=== PATIENT | female | born 1945 | race Caucasian/White ===

== ENCOUNTER 2017-05-20 07:30 | Inpatient (IN) | payer MEDICARE ==
--- NOTE | 2017-05-16 18:22 | HP ---
HISTORY AND PHYSICAL: DATE OF ADMISSION/SURGERY: 05/20/17 DATE OF OFFICE VISIT: 05/16/17 SURGEON: Trudy Rueda MD. PROCEDURE: Left total hip arthroplasty. CHIEF COMPLAINT: Left hip pain. HISTORY OF PRESENT ILLNESS: Ms. Hi is a 72-year-old female with complaints of left hip pain. She has failed conservative management and has elected to proceed with a left total hip arthroplas ty, which is scheduled for 05/20/[address] Rudea. PAST MEDICAL HISTORY: 1. Osteoarthritis. 2. Hypertension. 3. Anxiety. 4. High cholesterol. 5. Lupus. 6. Polymyalgia rheumatica. 7. Peptic/duodenal ulcers. PAST SURGICAL HISTORY: 1. Cataract removal. 2. Squamous cell carcinoma removal. 3. Total hysterectomy. CURRENT MEDICATIONS: 1. [place]. 2. Lisinopril. 3. Hydroxychloroquine. 4. Vitamin D. 5. Alprazolam. 6. Prednisone. 7. Metoprolol. 8. Gabapentin. 9. Furosemide. 10. Cardizem. 11. Allopurinol. 12. Vitamin D3. 13. Calcium citrate. ALLERGIES: NORVASC and LATANOPROST EYE DROPS. FAMILY HISTORY: Heart disease, ovarian cancer, rheumatoid arthritis and lung cancer. SOCIAL HISTORY: This is a 72-year-old female. She lives with a friend. She smokes about a quarter pack of cigarettes a day for the last 30 years. She denies use of alcohol or drugs. REVIEW OF SYSTEMS: A complete 14-point review of systems was reviewed with the patient, positive fo r history of MRSA infection. She denies any history of anesthesia problems, DVT, PE, hepatitis C or HIV. PHYSICAL EXAMINATION GENERAL: She is well developed, well nourished, in no acute distress. VITAL SIGNS: She stands 5 feet 8 inches tall, weighs 140 pounds. Her blood pressure is 132/80, her heart rate is 84. HEENT: Normocephalic, atraumatic. NECK: Supple. No palpable lymph nodes. PULMONARY: Lungs are clear to auscultation. CARDIO: Regular rate and rhythm. ABDOMEN: Soft, nontender, and nondistended. MUSCULOSKELETAL: Left lower extremity: The skin is intact. She has limited range of motion with i nternal and external rotation of her left hip. She walks with an antalgic-type gait. Her lower ext remity muscle group strengths are intact at 5/5. She has 2+ dorsalis pedis pulses and intact sensati on. NEUROLOGIC: She is alert and oriented x3. Cranial nerves II through XII are intact. ASSESSMENT AND PLAN: Ms. Hi is a 72-year-old female with complaints of left hip pain. She has failed conservative management and has elected to proceed with a left total hip arthroplasty, wh ich is scheduled for 05/20/[address] Rueda discussed the risks and benefits of the [place] asmita and all of her questions were answered. Colace and Coumadin were sent to her pharmacy for post operative DVT prophylaxis and to help with postoperative constipation. Pain medication was not sent to her pharmacy. The type of pain medication will be determined at the time of discharge from the hospital. She will see Dr. Rueda, back 2 weeks following the surgery. MENDEZ BENITEZ [id number]/[facility] #: [id number]
[2017-05-21] MEDS ORDERED: Buffered Lidocaine 0.9% SYRIN* 5 ML/SYR SYRINGE INTRADERM ONE (14:01)
[2017-05-22] MEDS ORDERED: Scopolamine 1.5 mg* PATCH TRANSDERM ONE (06:00)
[2017-05-22] MEDS ORDERED: Famotidine IV* 10 MG/ML 2 ML (20 mg) IV ONE (06:00)
[2017-05-22] MEDS ORDERED: Famotidine IV* 10 MG/ML 2 ML (20 mg) ONE (09:58)
[2017-05-22] MEDS ORDERED: ceFAZolin 2 GM PREMIX(*) 2 GM/50 ML BAG IVPB ONE (09:59)
[2017-05-22] MEDS ORDERED: Scopolamine 1.5 mg* PATCH ONE (09:59)
[2017-05-22] MEDS ORDERED: Buffered Lidocaine 0.9% SYRIN* 5 ML/SYR SYRINGE ONE (09:59)
[2017-05-22] MEDS ORDERED: Hydrocortisone INJ* 100 MG VIAL ONE (12:15)
[2017-05-22] MEDS ORDERED: fentaNYL* 50 MCG/ML 2 ML VIAL (100 MCG VIAL) ONE (12:15)
[2017-05-22] MEDS ORDERED: Midazolam* 1 MG/ML 5 ML VIAL (5 MG) ONE (12:15)
[2017-05-22] MEDS ORDERED: Bupivacaine 0.5% SDV PF* 30 ML VIAL ONE (12:21)
[2017-05-22] MEDS ORDERED: Morphine PF AMP (0.5MG/ML)* 5 MG/10 ML AMP ONE (12:21)
[2017-05-22] MEDS ORDERED: EPHEDrine (Pressors)* 50 MG/ML VIAL ONE (13:27)
[2017-05-22] MEDS ORDERED: oxyCODONE TAB* 5 MG TAB PO PRN ×2 (14:11→14:13)
[2017-05-22] MEDS ORDERED: fentaNYL* 50 MCG/ML 2 ML VIAL (100 MCG VIAL) IV PRN (14:11)
[2017-05-22] MEDS ORDERED: PROCHLORPERAZINE INJ 5 MG/ML 2 ML VIAL IV PRN ×2 (14:11→14:13)
[2017-05-22] MEDS ORDERED: Acetaminophen IV 1GM/100ML * 100 ML IVPB ONE (14:11)
[2017-05-22] MEDS ORDERED: Nalbuphine* 20 MG/ML 1 ML VIAL IV PRN ×2 (14:11→14:13)
[2017-05-22] MEDS ORDERED: Ondansetron INJ* 2 MG/ML VIAL IV PRN (14:13)
[2017-05-22] MEDS ORDERED: Naloxone* 0.4 MG/ML 1 ML VIAL IV PRN (14:13)
[2017-05-22] MEDS ORDERED: Lactated Ringers 500 ml BAG* 500 ML IV PRN (14:17)
[2017-05-22] MEDS ORDERED: EPHEDrine (Pressors)* 50 MG/ML VIAL IV PUSH PRN (14:17)
[2017-05-22] MEDS ORDERED: Bisacodyl SUPP* 10 MG SUPP PR PRN (14:30)
[2017-05-22] MEDS ORDERED: Polyethylene Glycol 3350* 17 GM PACKET PO PRN (14:30)
[2017-05-22] MEDS ORDERED: Furosemide TAB* 20 MG PO PRN (14:35)
[2017-05-22] MEDS ORDERED: Propofol* 10 MG/ML 20 ML BTL IV PUSH ONE ×2 (14:36→15:23)
[2017-05-22] MEDS ORDERED: Acetaminophen TAB* 325 MG PO SCH (15:00)
[2017-05-22] MEDS ORDERED: ceFAZolin VIAL(*) 1 GM in NS 0.9% 50 ML* 50 ML IVPB SCH (15:00)
[2017-05-22] MEDS ORDERED: Ropivacaine 0.2% EPIDURAL* 200 MG/100 ML BAG EPIDURAL SCH (15:00)
[2017-05-22] MEDS ORDERED: Lidocaine 2% PF * 5 ML VIAL ONE (15:23)
[2017-05-22] MEDS ORDERED: Ropivacaine 0.2% EPIDURAL* 200 MG/100 ML BAG EPIDURAL ONE (15:39)
--- NOTE | 2017-05-22 15:43 | RAD ---
Indication: Left hip replacement. Single view of the pelvis demonstrates left hip replacement in satisfactory position. No loosening is noted. IMPRESSION: LEFT HIP REPLACEMENT IN SATISFACTORY POSITION.
--- NOTE | 2017-05-22 16:55 | RAD ---
Indication: Left hip arthroplasty. 2 views of left hip demonstrates bipolar left hip arthroplasty in satisfactory position. No periprosthetic fracture is noted. IMPRESSION: Left hip replacement in satisfactory position.
--- NOTE | 2017-05-22 16:56 | RAD ---
Indication: Left hip replacement. Single view of the pelvis demonstrates left hip replacement in satisfactory position. Right hip demonstrates osteopenia. IMPRESSION: Left hip replacement appears in satisfactory position.
[2017-05-22] MEDS ORDERED: Acetaminophen IV 1GM/100ML * 100 ML ONE (17:47)
[2017-05-22] MEDS: ceFAZolin VIAL(*) 1 GM in NS 0.9% 50 ML* 50 ML IVPB SCH (19:58)
[2017-05-22] MEDS: Docusate CAP* 100 MG PO SCH (19:58)
[2017-05-22] MEDS ORDERED: Warfarin TAB(*) 6 MG PO ONE (20:00)
[2017-05-22] MEDS: Hydroxychloroquine TAB* 200 MG PO SCH (20:24)
[2017-05-22] MEDS ORDERED: NON FORMULARY MED* (Lisinopril [Lisinopril 40 Mg-] 40 MG) PO SCH (21:00)
--- NOTE | 2017-05-23 00:45 | CONS ---
CC: Dr. Tanja Vasquez; Dr. Maldonado * MEDICINE CONSULTATION: DATE OF CONSULT: 05/22/17 PROVIDER: Herbie Tinajero NP CONSULTING PHYSICIAN: Dr. Bud Jennings (as dictated by Herbie Tinajero NP) REQUESTING PHYSICIAN: Dr. Trudy Rueda, Orthopedic Surgery. PRIMARY CARE PROVIDER: Dr. Vasquez. PRIMARY OVERHEAD GARAGE DOOR HANGER: Dr. Maldonado. REASON FOR CONSULT: Co-medical management in the postoperative period following left total hip arthroplasty. HISTORY OF PRESENT ILLNESS: Ms. Hi is a 72-year-old female, who reports persistent left hip pain. She describes debilitating pain stating that prior to the surgery, she "thought she would " and also reports decreased mobility , decreased p.o. intake, and incontinence at home secondary to pain ambulating to the bathroom. In the terms of acute medical issues, she denies any recent fever, chills, chest pain, trouble breathing, nausea, vomiting, or any other acute concerns. She is most concerned with her chronic ailments, primarily her hip, and it was felt a hip replacement will help to improve her quality of life. PAST MEDICAL HISTORY: Significant for: 1. Osteoarthritis. 2. Hypertension. 3. Anxiety. 4. Hyperlipidemia. 5. Contact dermatitis. 6. Polymyalgia rheumatica. 7. Systemic lupus erythematosus. 8. Allergic rhinitis. 9. Peptic and duodenal ulcers. 10. Cervical and lumbar degenerative disk disease. 11. Gout. PAST SURGICAL HISTORY: Includes: 1. Cataract removal. 2. Squamous cell carcinoma removal from the nose. 3. Hysterectomy secondary to cervical cancer and endometriosis. HOME MEDICATIONS: 1. Calcium supplement 1 tab daily. 2. Xanax 0.5 mg daily. 3. [place] 5/325 one tab q.4 hours p.r.n. 4. Metoprolol succinate 50 mg b.i.d. 5. Plaquenil 200 mg b.i.d. 6. Lisinopril 40 mg b.i.d. 7. Vitamin D 50,000 units weekly. 8. Gabapentin 300 mg daily. 9. Diltiazem 120 mg daily. 10. Allopurinol 100 mg daily. 11. Furosemide 20 mg daily p.r.n. 12. Prednisone 10 mg p.r.n. ALLERGIES: Include AMLODIPINE, LATANOPROST, and LATEX. FAMILY HISTORY: Significant for father, who from heart disease and mother , who from ovarian cancer. She reports 1 brother with rheumatoid arthritis and lung cancer, another brother with sleep apnea and osteoarthritis. SOCIAL HISTORY: She reports greater than 30 years smoking history. She smokes a quarter pack per day and states that she has greatly decreased this. She denies any alcohol or illicit drug use. She is . She lives with her friend, Gonzalo Mcdaniels, who is also her surrogate decision maker in the event of emergency, he is also her cement truck driver. REVIEW OF SYSTEMS: As per HPI, a 12-point review of systems was completed, all other systems are negative. PHYSICAL EXAM: General: Ms. Hi is a 72-year-old female, who is lying in the PACU stretcher, in no acute distress. Vital Signs: Temperature 97.0, heart rate 55, respiratory rate 16, blood pressure 113/84, and O2 sat 100% on 2 L nasal cannula. HEENT: Head is atraumatic, normocephalic. Face is symmetrical. Pupils are equal, round, and reactive to light. Oral mucosa appears moist. Neck is supple. No lymphadenopathy appreciated. Cardiac: S1, S2 heart sounds. Regular rate and rhythm. No murmurs, rubs, or gallops. Respiratory: Lungs are clear to auscultation. Abdomen is soft, nontender, and nondistended. Musculoskeletal: The left lower extremity has a clean, dry, and intact dressing to the left hip. The patient is able to wiggle her toes. She has 2+ dorsalis pedis pulses to the lower extremities. She is able to move her upper extremities and right lower extremity. Neuro: She is alert and oriented x3. No focal weakness. She moves all extremities. ASSESSMENT AND PLAN: Ms. Hi is a 72-year-old female, who has electively been admitted today for a left total hip arthroplasty. We will follow along with the orthopedic group for her co-medical management. Plan is as follows. 1. Status post left total hip replacement: Management per Ortho. We would continue with pain management and monitoring of H and H and PT and OT. 2. Hypertension: Currently normotensive. We will continue the patient's home medications of Toprol-XL and lisinopril in the postoperative period; however, I will hold her lisinopril for postop day 1 and add this back on in order to prevent any acute kidney injury. Metoprolol and diltiazem will be continued withhold parameters. 3. Hyperlipidemia: The patient is diet controlled, continue her healthy diet. 4. Lupus: Continue Plaquenil. 5. Polymyalgia rheumatica: Continue outpatient followup with Rheumatology, we will hold her p.r.n. prednisone in the postoperative period. 6. History of gout: Continue allopurinol. 7. Chronic pain: Continue gabapentin. 8. Anxiety: Continue Xanax on a p.r.n. basis with hold parameters if sedated. 9. FEN: The patient will be ordered heart-healthy diet. 10. DVT prophylaxis: Per Ortho. 11. Code status: The patient is a full code. TIME SPENT: On this consultation was approximately 45 minutes, more than half the time was spent [id number] with the patient obtaining history and physical , performing physical examination, and reviewing plan of care. Plan of care also reviewed with my attending, Dr. Jennings, who is in agreement. HERBIE TINAJERO, NUCLEAR POWER PLANT ENGINEER [id number]/[facility] #: [id number] RUSTAM
[2017-05-23] MEDS: Acetaminophen TAB* 325 MG PO SCH ×4 (01:51→21:43)
[2017-05-23] MEDS: ceFAZolin VIAL(*) 1 GM in NS 0.9% 50 ML* 50 ML IVPB SCH ×2 (05:00→12:45)
[2017-05-23] MEDS ORDERED: Ondansetron INJ* 2 MG/ML VIAL IV PRN (06:00)
[2017-05-23] MEDS ORDERED: diPHENhydraMINE IV* 50 MG/ML 1 ml VIAL (BENADRYL) IV PRN (06:00)
[2017-05-23] MEDS ORDERED: oxyCODONE/Acetamin 5/325 MG* TAB PO PRN (06:00)
[2017-05-23] MEDS ORDERED: Morphine INJ* 2 MG/ML 1 ML SYRINGE IV PRN ×2 (06:00→09:30)
[2017-05-23] MEDS ORDERED: oxyCODONE TAB* 5 MG TAB PO PRN (06:00)
[2017-05-23 06:49] LABS: Hematocrit 32 % (35-47); Hemoglobin 10.5 g/dl (12.0-16.0)
[2017-05-23 07:27] LABS: BUN/Creatinine Ratio 18.3 (8-20); Blood Urea Nitrogen 13 mg/dL (6-24); CO2 Carbon Dioxide 24 mmol/L (22-32); Chloride 107 mmol/L (101-111); EGFR African American 103.5 (>60); EGFR Non-African American 80.5 (>60); Glucose 79 mg/dL (70-100); Sodium 137 mmol/L (133-145)
[2017-05-23] MEDS: oxyCODONE/Acetamin 5/325 MG* TAB PO PRN ×3 (07:49→18:39)
[2017-05-23 08:26] LABS: Anion Gap 6 mmol/L (2-11)
[2017-05-23] MEDS ORDERED: Lisinopril TAB* 10 MG PO SCH ×2 (09:00→21:00)
[2017-05-23] MEDS ORDERED: Diltiazem CD CAP* 120 MG PO SCH (09:00)
[2017-05-23] MEDS ORDERED: ALPRAZolam TAB* 0.5 MG PO SCH (09:00)
[2017-05-23] MEDS ORDERED: Metoprolol Succinate XL TAB* 50 MG PO SCH (09:00)
--- NOTE | 2017-05-23 09:30 | PN ---
Progress Note - Progress Note Date of Service: 05/23/17 SOAP: Subjective: 72 y/o female s/p L TIMI 05/[address] Rueda. Patient reports feeling comfortable , a bit confused lying in bed, states pain under control. Objective: General- Well appearing, NAD MSK- SUrgical dressing intact over L hip, no drainage noted, no erythema. PT pulses 2+, PF/ DF +. Vital Signs Temp 98.3 F 05/23/17 07:42 Pulse 79 05/23/17 07:42 Resp 20 05/23/17 08:03 BP 115/59 05/23/17 07:42 Pulse Ox 100 05/23/17 07:42 Intake & Output 05/22/17 05/23/17 05/23/17 18:59 06:59 18:59 Intake Total 2550 3467 120 Output Total 900 Balance 2550 2567 120 Weight 143 lb 12.8 oz Intake: IV Fluids 2550 1232 LR 1232 NS 50ML, Cefazolin 2G 50 lr 2500 IVPB 55 Kefzol 55 Oral 2180 120 Output: Kumari 900 Laboratory Results - last 24 hr 05/23/17 05/23/17 05/23/17 06:12 07:02 07:02 Hgb 10.5 L Hct 32 L INR (Anticoag Therapy) 1.04 Sodium 137 Potassium TNP Chloride 107 Carbon Dioxide 24 Anion Gap 6 BUN 13 Creatinine 0.71 Est GFR ( Amer) 103.5 Est GFR (Non-Af Amer) 80.5 BUN/Creatinine Ratio 18.3 Glucose 79 Calcium 8.0 L Assessment: 72 y/o female s/p L TIMI 05/[address] Rueda. Plan: - DVT prophylaxis- 6mg coumadin tonight, continue lovenox - Pain regimen- patient had increased confusion with morphine, percocet. Added Ultram, d/c'd 2 percocet, decreased IV morphine. Active Medications Generic Name Dose Route Start Last Admin Trade Name Freq PRN Reason Stop Dose Admin Acetaminophen 650 mg 05/23/17 15:00 Tylenol Tab* PO Q4H PRN PAIN OR TEMPERATURE Acetaminophen 975 mg 05/23/17 01:30 05/23/17 01:51 Tylenol Tab* PO 05/23/17 14:59 975 mg Q8H CHARU Administration Allopurinol 100 mg 05/23/17 09:00 Zyloprim Tab* PO DAILY CHARU Alprazolam 0.5 mg 05/23/17 06:00 Xanax Tab* PO DAILY PRN ANXIETY Bisacodyl 10 mg 05/22/17 14:30 Dulcolax Supp* PA DAILY PRN constipation Diltiazem HCl 120 mg 05/24/17 09:00 Cardizem Cd Cap* PO DAILY CHARU Diphenhydramine HCl 12.5 mg 05/23/17 06:00 Benadryl Iv* IV Q6H PRN PRURITIS Docusate Sodium 100 mg 05/22/17 21:00 05/22/17 19:58 Colace Cap* PO 100 mg BID CHARU Administration Enoxaparin Sodium 30 mg 05/23/17 15:00 Lovenox(*) SUBCUT Q24H CHARU Gabapentin 300 mg 05/23/17 09:00 Neurontin Cap(*) PO DAILY CHARU Hydroxychloroquine Sulfate 200 mg 05/22/17 21:00 05/22/17 20:24 Plaquenil Tab* PO 200 mg BID CHARU Administration Lactated Ringer's 1,000 mls @ 100 mls/hr 05/22/17 15:00 05/23/17 03:53 Lactated Ringers 1000 Ml Bag* IV 100 mls/hr PER RATE CHARU Administration Cefazolin Sodium 1 gm/ Sodium 50 mls @ 200 mls/hr 05/22/17 21:00 05/23/17 05: 00 Chloride IVPB 05/23/17 13:14 200 mls/hr Q8H CHARU Administration Lactulose 30 ml 05/22/17 14:30 Lactulose* PO Q6H PRN constipation Lisinopril 40 mg 05/23/17 09:00 Prinivil Tab* PO DAILY [facility] Magnesium Hydroxide 30 ml 05/22/17 14:30 Milk Of Magnesia Liq* PO Q6H PRN constipation Metoprolol Succinate 50 mg 05/24/17 09:00 Toprol Xl Tab* PO BID [facility] Morphine Sulfate 2 mg 05/23/17 06:00 05/23/17 08:03 Morphine Inj (Syringe)* IV 2 mg Q2H PRN Administration PAIN Ondansetron HCl 4 mg 05/23/17 06:00 Zofran Inj* IV Q6H PRN nausea Oxycodone HCl 10 mg 05/23/17 06:00 Roxycodone Tab* PO Q4H PRN SEVERE PAIN Oxycodone/Acetaminophen 1 tab 05/23/17 06:00 05/23/17 07:49 Percocet 5/325 Tab* PO 1 tab Q3H PRN Administration PAIN - MODERATE Pharmacy Profile Note 1 note 05/25/17 06:00 Scopolomine Patch Remove* PATCH OFF 05/25/17 06:01 ONCE ONE Pharmacy Profile Note 1 note 05/23/17 17:00 Coumadin Daily Reminder* FOLLOW UP 1700 [facility] Polyethylene Glycol/Electrolytes 17 gm 05/22/17 14:30 Miralax* PO DAILY PRN Constipation Tramadol HCl 50 mg 05/23/17 09:26 Ultram* PO Q6H PRN PAIN Warfarin Sodium 6 mg 05/23/17 17:00 Coumadin Tab(*) PO 05/23/17 17:01 ONCE@1700 [facility] Protocol
[2017-05-23] MEDS: Allopurinol TAB* 100 MG PO SCH (10:20)
[2017-05-23] MEDS: Gabapentin CAP(*) 300 MG PO SCH (10:20)
[2017-05-23] MEDS: Hydroxychloroquine TAB* 200 MG PO SCH ×2 (10:22→20:45)
[2017-05-23] MEDS: traMADol TAB* 50 MG PO PRN ×2 (10:22→21:43)
[2017-05-23] MEDS: Docusate CAP* 100 MG PO SCH ×2 (10:23→20:45)
--- NOTE | 2017-05-23 10:26 | PN ---
Subjective Date of Service: 05/23/17 Interval History: Patient seen and examined at bedside. Ms. Hi is laying in recliner in hallway. She is pleasantly confused and singing. She states she is going to treat her friend to take out. When asked if she knows she is in the hospital, she say "of course" and then "It's nice of everyone to come over." She currently denies pain though nursing reports that when patient is moved, she cries out. Family History: Unchanged from Admission Social History: Unchanged from Admission Past Medical History: Unchanged from Admission Objective Active Medications: Acetaminophen (Tylenol Tab*) 975 mg PO Q8H [facility] Stop: 05/23/17 14:59 Last Admin: 05/23/17 10:22 Dose: 975 mg Acetaminophen (Tylenol Tab*) 650 mg PO Q6H [facility] Allopurinol (Zyloprim Tab*) 100 mg PO DAILY [facility] Last Admin: 05/23/17 10:20 Dose: 100 mg Alprazolam (Xanax Tab*) 0.5 mg PO DAILY PRN PRN Reason: ANXIETY Bisacodyl (Dulcolax Supp*) 10 mg OR DAILY PRN PRN Reason: constipation Diltiazem HCl (Cardizem Cd Cap*) 120 mg PO DAILY [facility] Diphenhydramine HCl (Benadryl Iv*) 12.5 mg IV Q6H PRN PRN Reason: PRURITIS Docusate Sodium (Colace Cap*) 100 mg PO BID [facility] Last Admin: 05/23/17 10:23 Dose: 100 mg Enoxaparin Sodium (Lovenox(*)) 30 mg SUBCUT Q24H [facility] Gabapentin (Neurontin Cap(*)) 300 mg PO DAILY [facility] Last Admin: 05/23/17 10:20 Dose: 300 mg Hydroxychloroquine Sulfate (Plaquenil Tab*) 200 mg PO BID [facility] Last Admin: 05/23/17 10:22 Dose: 200 mg Lactated Ringer's (Lactated Ringers 1000 Ml Bag*) 1,000 mls @ 100 mls/hr IV PER RATE [facility] Last Admin: 05/23/17 03:53 Dose: 100 mls/hr Cefazolin Sodium 1 gm/ Sodium (Chloride) 50 mls @ 200 mls/hr IVPB Q8H [facility] Stop: 05/23/17 13:14 Last Admin: 05/23/17 05:00 Dose: 200 mls/hr Lactulose (Lactulose*) 30 ml PO Q6H PRN PRN Reason: constipation Lisinopril (Prinivil Tab*) 40 mg PO DAILY [facility] Magnesium Hydroxide (Milk Of Magnesia Liq*) 30 ml PO Q6H PRN PRN Reason: constipation Metoprolol Succinate (Toprol Xl Tab*) 50 mg PO BID [facility] Morphine Sulfate (Morphine Inj (Syringe)*) 0.5 mg IV Q2H PRN PRN Reason: PAIN Ondansetron HCl (Zofran Inj*) 4 mg IV Q6H PRN PRN Reason: nausea Oxycodone/Acetaminophen (Percocet 5/325 Tab*) 1 tab PO Q3H PRN PRN Reason: PAIN - MODERATE Last Admin: 05/23/17 07:49 Dose: 1 tab Pharmacy Profile Note (Scopolomine Patch Remove*) 1 note PATCH OFF ONCE ONE Stop: 05/25/17 06:01 Pharmacy Profile Note (Coumadin Daily Reminder*) 1 note FOLLOW UP 1700 [facility] Polyethylene Glycol/Electrolytes (Miralax*) 17 gm PO DAILY PRN PRN Reason: Constipation Tramadol HCl (Ultram*) 50 mg PO Q6H PRN PRN Reason: PAIN Last Admin: 05/23/17 10:22 Dose: 50 mg Warfarin Sodium (Coumadin Tab(*)) 6 mg PO ONCE@1700 CHARU PRN Reason: Protocol Stop: 05/23/17 17:01 Vital Signs 05/22/17 05/22/17 05/22/17 15:38 15:40 15:45 Temperature 97.0 F Pulse Rate 56 53 56 Respiratory 20 16 17 Rate Blood Pressure 118/72 123/64 108/95 (mmHg) O2 Sat by Pulse 98 99 100 Oximetry 05/22/17 05/22/17 05/22/17 15:50 16:00 16:15 Temperature Pulse Rate 55 56 55 Respiratory 16 16 16 Rate Blood Pressure 110/62 123/82 113/84 (mmHg) O2 Sat by Pulse 96 99 100 Oximetry 05/22/17 05/22/17 05/22/17 16:30 16:45 17:00 Temperature Pulse Rate 55 55 58 Respiratory 15 16 16 Rate Blood Pressure 116/83 117/77 134/100 (mmHg) O2 Sat by Pulse 100 100 100 Oximetry 05/22/17 05/22/17 05/22/17 17:15 17:30 17:45 Temperature Pulse Rate 56 59 59 Respiratory 16 16 16 Rate Blood Pressure 130/63 139/64 124/58 (mmHg) O2 Sat by Pulse 100 100 100 Oximetry 05/22/17 05/22/17 05/22/17 18:00 18:30 19:40 Temperature 97.5 F 98.5 F 97.2 F Pulse Rate 58 68 68 Respiratory 16 16 15 Rate Blood Pressure 119/80 113/62 102/65 (mmHg) O2 Sat by Pulse 100 99 97 Oximetry 05/22/17 05/22/17 05/22/17 20:15 20:31 22:26 Temperature 98.4 F 97.8 F Pulse Rate 70 69 Respiratory 15 16 15 Rate Blood Pressure 109/60 98/55 (mmHg) O2 Sat by Pulse 100 96 Oximetry 05/23/17 05/23/17 05/23/17 00:00 00:05 00:10 Temperature 97.9 F Pulse Rate 74 Respiratory 16 Rate Blood Pressure 99/66 98/68 (mmHg) O2 Sat by Pulse 99 99 Oximetry 05/23/17 05/23/17 05/23/17 01:52 02:54 03:45 Temperature 97.9 F 98.1 F 98.9 F Pulse Rate 107 77 76 Respiratory 15 18 14 Rate Blood Pressure 107/65 95/58 77/48 (mmHg) O2 Sat by Pulse 87 100 97 Oximetry 05/23/17 05/23/17 05/23/17 04:02 07:42 07:49 Temperature 98.3 F Pulse Rate 79 Respiratory 16 16 Rate Blood Pressure 102/56 115/59 (mmHg) O2 Sat by Pulse 100 Oximetry 05/23/17 05/23/17 05/23/17 08:03 09:03 09:49 Temperature Pulse Rate Respiratory 20 16 16 Rate Blood Pressure (mmHg) O2 Sat by Pulse Oximetry 05/23/17 05/23/17 10:20 10:22 Temperature Pulse Rate Respiratory 16 16 Rate Blood Pressure (mmHg) O2 Sat by Pulse Oximetry Oxygen Devices in Use Now: Nasal Cannula Appearance: Elderly female, lying in recliner, confused but NAD Eyes: PERRLA Ears/Nose/Mouth/Throat: Mucous Membranes Moist Neck: NL Appearance and Movements; NL JVP Respiratory: Symmetrical Chest Expansion and Respiratory Effort, Clear to Auscultation Cardiovascular: NL Sounds; No Murmurs; No JVD, RRR Abdominal: NL Sounds; No Tenderness; No Distention Extremities: - - left hip dressing c/d/i, 2+ distal pulses Neurological: - - Alert, oriented to self Lines/Tubes/Other Access: Clean, Dry and Intact Peripheral IV Nutrition: Taking PO's Result Diagrams: 05/23/17 06:12 05/23/17 07:02 Microbiology and Other Data: Microbiology 05/22/17 18:45 Nasal Screen MRSA (PCR)(JOSE MANUEL) - Final Nasal Mrsa Negative Assess/Plan/Problems-Billing Assessment: Ms. Hi is a 72 yo female with a PMH significant for OA, HTN, HLD, anxiety , PMR, SLE, gout, and pelvic and duodenal ulcers who was admitted on 05/22 for an elective left total hip replacement. - Patient Problems (1) History of total left hip replacement Code(s): Z96.642 - PRESENCE OF LEFT ARTIFICIAL HIP JOINT Comment: POD #1, management per ortho HH stable PT/OT Pain management (2) Altered mental status Code(s): R41.82 - ALTERED MENTAL STATUS, UNSPECIFIED Comment: Patient reportedly more oriented prior to receiving oxycodone and morphine Agree with medication changes to standing Tylenol and use of Ultram Will need to judiciously use opioids Afebrile, no s/s infection Continue to monitor - if confusion persists, further workup and eval is warranted. (3) HTN (hypertension) Code(s): I10 - ESSENTIAL (PRIMARY) HYPERTENSION Comment: Hypotensive Hold home lisinopril and Toprol XL (Patient reportedly takes lisinopril 40 mg BID, which is more than recommended dose. Will attempt to confirm with PCP). (4) HLD (hyperlipidemia) Code(s): E78.5 - HYPERLIPIDEMIA, UNSPECIFIED Comment: Diet controlled (5) Lupus (systemic lupus erythematosus) Code(s): M32.9 - SYSTEMIC LUPUS ERYTHEMATOSUS, UNSPECIFIED Comment: Continue Plaquenil. (6) Polymyalgia rheumatica Code(s): M35.3 - POLYMYALGIA RHEUMATICA Comment: Hold prednisone Continue outpatient follow-up with rheumatology. (7) Hx of gout Code(s): Z87.39 - PERSONAL HISTORY OF DISEASES OF THE MS SYS AND CONN TISS Comment: Continue allopurinol. (8) Chronic pain Code(s): G89.29 - OTHER CHRONIC PAIN Comment: Continue gabapentin. (9) Anxiety Code(s): F41.9 - ANXIETY DISORDER, UNSPECIFIED Comment: Continue alprazolam prn. (10) DVT prophylaxis Comment: Per ortho Warfarin and Lovenox Status and Disposition: Inpatient admit. Dispo per ortho. Hospitalist following for co-medical management.
[2017-05-23] MEDS ORDERED: Acetaminophen TAB* 325 MG PO PRN (15:00)
[2017-05-23] MEDS ORDERED: Enoxaparin(*) 30 MG/0.3 ML SYR SUBCUT SCH (15:00)
[2017-05-23] MEDS ORDERED: Warfarin TAB(*) 6 MG PO SCH (17:00)
[2017-05-24] MEDS: oxyCODONE/Acetamin 5/325 MG* TAB PO PRN ×5 (00:03→20:27)
[2017-05-24] MEDS: ALPRAZolam TAB* 0.5 MG PO PRN (00:04)
[2017-05-24] MEDS: Acetaminophen TAB* 325 MG PO SCH ×4 (03:59→21:15)
--- NOTE | 2017-05-24 04:43 | OP ---
OPERATIVE NOTE: DATE OF OPERATION: 05/22/17 DATE OF : 41 ATTENDING SURGEON: Trudy Rueda MD SALES AND SERVICE CONSULTANT: MENDEZ Torres Ms. Sharp did help throughout the procedure with preparation of the leg, wound retraction, manipula tion of the hip, and wound closure. ANESTHESIOLOGIST: Dr. Mendez. ANESTHESIA: Spinal. 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 POST-OP DIAGNOSIS: Severe end-stage arthritis of the left hip joint. OPERATIVE PROCEDURE: Left total hip arthroplasty. COMPLICATIONS: None. EBL: 300 cc. SPECIMEN: Femoral head and acetabular reaming, sent to Pathology. HARDWARE: This is uncemented [employer] total hip hardware. For the stem, an Accolade TMZF size 4.5 w ith a 127-degree neck angle. One prophylactic 2.0 Dall- Miles cable around the proximal femur. For the femoral head, a Biolox delta ceramic V40 femoral head, 28 -4. For the insert, a 28/48/42E Rest oration MDM X3 insert. BRIEF HISTORY/INDICATION: Ms. Hi is a 72-year-old female with years of increasingly severe l eft hip pain. She failed conservative treatment with antiinflammatories, pain medication, physical therapy, and ambulatory assistive devices. She elected to undergo a left total hip arthroplasty due to continued pain and decreased quality of life. Radiographs confirmed end-stage [id number] cont act of the left hip joint. Informed consent was obtained from the patient. She understood the risks of surgery included but we re not limited to bleeding, infection, damage to nearby structures, continued pain, need for further surgery, intraoperative fracture, nerve palsy, hardware failure or loosening, dislocation, leg flynn th discrepancy, stroke, heart attack, blood clot, and . She wished to proceed. INTRAOPERATIVE FINDINGS: Intraoperatively, the patient was noted to have severe osteopenia. She nina d end-stage arthritis with complete loss of cartilage along the . DESCRIPTION OF PROCEDURE: Ms. Hi was identified in the preanesthesia unit. The left lower ex tremity was marked as the correct operative site. Informed consent was signed and placed in the [facility] rt. The patient was taken to the operating room and placed under spinal anesthesia without difficul ty. Kumari catheter was placed. The patient was placed in the right lateral decubitus position on t he pegboard and all bony prominences were well padded. Left lower extremity was prepped and draped in the usual sterile fashion. Preop time-out was made to correctly identify the patient's side and site. Appropriate perioperative antibiotics were given within 1 hour of incision. A 12-cm posterior hip incision was made with a 10-blade and carried down to the lateral fascial laye r. Lateral fascial layer was incised in line with the skin incision. A Charnley retractor was plac ed. Piriformis and conjoint tendons were identified. These were elevated off the posterolateral fe mur and tagged with two #5 Ethibonds. Next, electrocautery was used to make a posterior capsular fl ap. This was also tagged with two #5 Ethibonds. The hip was carefully dislocated. Lesser troch to c enter of the femoral head measured 48 mm. Oscillating saw was used to make the appropriate femoral neck cut. Femoral head was sent to Pathology. f The femur was carefully retracted anteriorly. Afte r appropriate placement of retractors, the acetabulum was easily visualized. A long-handle knife wa s used to sharply remove any remaining labrum from the acetabular rim. The acetabulum was sequentia lly reamed up to a size 51. A good bleeding bone bed was obtained. The 51 trial had good fit. A 52 hemispherical Trident cup was chosen as the final implant. This was impacted into the acetabul um without difficulty. One 13-mm and one 16-mm screws placed in the superoposterior quadrant for ex tra stability. An MDM cement with liner 42E was chosen. This was impacted into the acetabulum with out difficulty. Stability of the liner was checked and rechecked and noted to be stable. Next, attention was turned to preparation of the proximal femur. A canal finder was used to enter [facility] proximal femur. The femur was sequentially broached up to a size 4.5. The 4.5 broach had good f it. The patient's bone was extremely osteopenic. Therefore, a prophylactic 2.0 Dall-Miles cable wa s placed around the proximal femur. The final implant was an Accolade TMZF size 4.5 with 127-degree neck. This was impacted into the femoral canal without difficulty. There was excellent stability. There was no periprosthetic fracture were noted. A 28 -4 femoral head had lesser troch to center of femoral head measurement of 50 mm, therefore, thi s was chosen. The MDM insert was 28/48/42E. These were impacted onto the femoral neck without diffi culty. The hip was reduced and taken through range of motion. The hip was stable in all positions. There was appropriate leg length and soft tissue tension. The previously tagged capsules and tend ons were reapproximated to the posterolateral femur through 2 trochanteric drill holes. The hip was copiously irrigated with sterile saline. The lateral fascial layer was reapproximated u sing interrupted #1 Vicryls. The rest of the incision was closed in a layered fashion using 0 and 2 -0 Vicryls. Skin was closed using running 3-0 Monocryl suture with Dermabond. Sterile 4x4s, Adapti c, and paper tape were used to cover the incision. The patient's anesthesia was reversed without difficulty. She was taken to the PACU in stable condi tion. Intended weightbearing will be weightbearing as tolerated. Intended DVT prophylaxis will be Coumadin with a Lovenox bridge. [id number]/[facility] #: [id number]
[2017-05-24] MEDS: traMADol TAB* 50 MG PO PRN (05:27)
[2017-05-24 07:38] LABS: Hematocrit 27 % (35-47); Hemoglobin 9.1 g/dl (12.0-16.0)
[2017-05-24] MEDS: Magnesium Hydroxide LIQ* 30 ML UDC PO PRN ×2 (07:55→15:57)
[2017-05-24] MEDS: Gabapentin CAP(*) 300 MG PO SCH (07:56)
[2017-05-24] MEDS: Allopurinol TAB* 100 MG PO SCH (07:56)
[2017-05-24] MEDS: Hydroxychloroquine TAB* 200 MG PO SCH ×2 (07:56→21:10)
[2017-05-24] MEDS: Docusate CAP* 100 MG PO SCH ×2 (07:56→21:09)
[2017-05-24] MEDS: Diltiazem CD CAP* 120 MG PO SCH (07:57)
[2017-05-24] MEDS: Lisinopril TAB* 10 MG PO SCH (07:57)
[2017-05-24] MEDS: Metoprolol Succinate XL TAB* 50 MG PO SCH ×2 (07:57→21:10)
--- NOTE | 2017-05-24 08:12 | PN ---
Progress Note - Progress Note Date of Service: 05/24/17 SOAP: Subjective: Pt. is alert this am with no confusion. Plans to go home with her roommate. Objective: LLE - dressing changed, inc c/d/i. distally nvi. thigh soft. Vital Signs: Temp Pulse Resp BP Pulse Ox 98.2 F 74 18 141/59 98 05/24/17 07:18 05/24/17 07:18 05/24/17 07:57 05/24/17 07:18 05/24/17 07:18 Laboratory Results - last 24 hr 05/23/17 05/24/17 05/24/17 07:02 07:15 07:15 Hgb 9.1 L Hct 27 L INR (Anticoag Therapy) Potassium TNP 3.6 Anion Gap 6 05/24/17 07:15 Hgb Hct INR (Anticoag Therapy) 1.78 H Potassium Anion Gap Assessment: 72 yo F pod 2 s/p LTHA Plan: wbat lle with post hip precautions pt/ot d/c lovenox 3 mg coumadin tonight confusion much improved plan home with vns tomorrow 05/25 will give 20 kcl bid for borderline low K
[2017-05-24] MEDS ORDERED: Lisinopril TAB* 10 MG PO SCH (09:00)
[2017-05-24] MEDS ORDERED: Metoprolol Succinate XL TAB* 50 MG PO SCH (09:00)
[2017-05-24] MEDS: Potassium Chlor TAB* 20 MEQ TAB.ER PO SCH ×2 (09:33→21:10)
--- NOTE | 2017-05-24 13:10 | PN ---
Subjective Date of Service: 05/24/17 Interval History: Ms. Hi is surprised by the amount of pain she has in her left hip but she states that it is better than yesterday. She complains of feeling of heartburn after eating with pain across the shoulder blades, exactly like she has had in the past with a history of stomache ulcers and hiatal hernia. She denies other complaint including chest pain, SOB, nausea, or abdominal pain. Family History: Unchanged from Admission Social History: Unchanged from Admission Past Medical History: Unchanged from Admission Objective Active Medications: Acetaminophen (Tylenol Tab*) 650 mg PO Q6H CHARU Allopurinol (Zyloprim Tab*) 100 mg PO DAILY CHARU Alprazolam (Xanax Tab*) 0.5 mg PO DAILY PRN Bisacodyl (Dulcolax Supp*) 10 mg [place] DAILY PRN Diltiazem HCl (Cardizem Cd Cap*) 120 mg PO DAILY CHARU Diphenhydramine HCl (Benadryl Iv*) 12.5 mg IV Q6H PRN Docusate Sodium (Colace Cap*) 100 mg PO BID CHARU Gabapentin (Neurontin Cap(*)) 300 mg PO DAILY CHARU Hydroxychloroquine Sulfate (Plaquenil Tab*) 200 mg PO BID CHARU Lactated Ringer's (Lactated Ringers 1000 Ml Bag*) 1,000 mls @ 100 mls/hr IV PER RATE CHARU Lactulose (Lactulose*) 30 ml PO Q6H PRN Lisinopril (Prinivil Tab*) 40 mg PO DAILY CHARU Magnesium Hydroxide (Milk Of Magnesia Liq*) 30 ml PO Q6H PRN Metoprolol Succinate (Toprol Xl Tab*) 50 mg PO BID CHARU Morphine Sulfate (Morphine Inj (Syringe)*) 0.5 mg IV Q2H PRN Ondansetron HCl (Zofran Inj*) 4 mg IV Q6H PRN Oxycodone/Acetaminophen (Percocet 5/325 Tab*) 1 tab PO Q3H PRN Pharmacy Profile Note (Scopolomine Patch Remove*) 1 note PATCH OFF ONCE ONE Pharmacy Profile Note (Coumadin Daily Reminder*) 1 note FOLLOW UP 1700 CHARU Polyethylene Glycol/Electrolytes (Miralax*) 17 gm PO DAILY PRN Potassium Chloride (Klor Con Er Tab*) 20 meq PO BID CHARU Tramadol HCl (Ultram*) 50 mg PO Q6H PRN Warfarin Sodium (Coumadin Tab(*)) 3 mg PO ONCE@1700 ONE Vital Signs 05/23/17 05/23/17 05/23/17 14:51 15:43 16:51 Temperature 98.7 F Pulse Rate 82 Respiratory 16 20 16 Rate Blood Pressure 136/69 (mmHg) O2 Sat by Pulse 92 Oximetry 05/23/17 05/23/17 05/23/17 18:39 19:40 19:50 Temperature 98.8 F Pulse Rate 87 Respiratory 16 24 17 Rate Blood Pressure 132/94 (mmHg) O2 Sat by Pulse 99 Oximetry 05/23/17 05/23/17 05/23/17 20:00 20:39 20:50 Temperature Pulse Rate Respiratory 17 16 16 Rate Blood Pressure (mmHg) O2 Sat by Pulse Oximetry 05/23/17 05/23/17 05/23/17 21:43 23:20 23:43 Temperature 99.3 F Pulse Rate 83 Respiratory 16 18 17 Rate Blood Pressure 141/66 (mmHg) O2 Sat by Pulse 97 Oximetry 05/24/17 05/24/17 05/24/17 00:03 00:04 02:03 Temperature Pulse Rate Respiratory 17 17 16 Rate Blood Pressure (mmHg) O2 Sat by Pulse Oximetry 05/24/17 05/24/17 05/24/17 02:04 03:46 05:27 Temperature 99.5 F Pulse Rate 80 Respiratory 16 16 16 Rate Blood Pressure 140/65 (mmHg) O2 Sat by Pulse 97 Oximetry 05/24/17 05/24/17 05/24/17 07:15 07:18 07:56 Temperature 98.2 F Pulse Rate 74 Respiratory 16 16 18 Rate Blood Pressure 141/59 (mmHg) O2 Sat by Pulse 98 Oximetry 05/24/17 05/24/17 05/24/17 07:57 08:00 09:32 Temperature Pulse Rate Respiratory 18 16 16 Rate Blood Pressure (mmHg) O2 Sat by Pulse 98 Oximetry 05/24/17 05/24/17 05/24/17 09:33 11:19 12:43 Temperature 98.0 F Pulse Rate 65 Respiratory 16 16 16 Rate Blood Pressure 106/81 (mmHg) O2 Sat by Pulse 93 Oximetry Oxygen Devices in Use Now: Nasal Cannula Appearance: Elderly female sitting up in bed in NAD Eyes: No Scleral Icterus Ears/Nose/Mouth/Throat: Mucous Membranes Moist Neck: NL Appearance and Movements; NL JVP Respiratory: Symmetrical Chest Expansion and Respiratory Effort, Clear to Auscultation Cardiovascular: NL Sounds; No Murmurs; No JVD, No Edema Abdominal: NL Sounds; No Tenderness; No Distention Lymphatic: No Cervical Adenopathy Extremities: No Edema Skin: No Rash or Ulcers Neurological: Alert and Oriented x 3, NL Muscle Strength and Tone Nutrition: Taking PO's Result Diagrams: 05/24/17 07:15 05/24/17 07:15 Microbiology and Other Data: Microbiology 05/22/17 18:45 Nasal Screen MRSA (PCR)(JOSE MANUEL) - Final Nasal Mrsa Negative Assess/Plan/Problems-Billing Assessment: Ms. Hi is a 72 yo female with a PMH significant for OA, HTN, HLD, anxiety , PMR, SLE, gout, and pelvic and duodenal ulcers who was admitted on 05/22 for an elective left total hip replacement. - Patient Problems (1) History of total left hip replacement Comment: - POD #2, management per ortho. - HH stable. - PT/OT. - Tylenol and tramadol for prn given AMS with narcotics. (2) Altered mental status Comment: Patient reportedly more oriented prior to receiving oxycodone and morphine Agree with medication changes to standing Tylenol and use of Ultram Will need to judiciously use opioids Afebrile, no s/s infection Continue to monitor - if confusion persists, further workup and eval is warranted. (3) GERD (gastroesophageal reflux disease) Comment: - Patient reports heartburn type symptoms after surgery. - Start omeprazole. (4) Anxiety Comment: - Continue alprazolam prn. (5) Polymyalgia rheumatica Comment: - Hold prn prednisone. (6) HTN (hypertension) Comment: - SBP 100-140s. - Resume home metoprolol, hold lisinopril. (Patient reportedly takes lisinopril 40 mg BID, which is more than recommended dose. Will attempt to confirm with PCP on Friday). (7) Chronic pain Comment: - Continue gabapentin. (8) Hx of gout Comment: - Continue allopurinol. (9) Lupus (systemic lupus erythematosus) Comment: - Continue Plaquenil. (10) DVT prophylaxis Comment: - Warfarin and Lovenox. Status and Disposition: Inpatient admit. Dispo per ortho. Hospital Medicine will sign off for now, but please contact us with any further questions or concerns.
[2017-05-24] MEDS ORDERED: Warfarin TAB(*) 3 MG PO ONE (17:00)
[2017-05-25] MEDS: oxyCODONE/Acetamin 5/325 MG* TAB PO PRN ×4 (01:55→20:39)
[2017-05-25] MEDS: Acetaminophen TAB* 325 MG PO SCH ×4 (05:31→20:39)
[2017-05-25] MEDS ORDERED: Scopolomine PATCH Remove* 1 NOTE MISC PATCH OFF ONE (06:00)
[2017-05-25] MEDS: Omeprazole CAP* 20 MG PO SCH (06:07)
[2017-05-25 06:32] LABS: Hematocrit 26 % (35-47); Hemoglobin 8.6 g/dl (12.0-16.0)
[2017-05-25] MEDS: Gabapentin CAP(*) 300 MG PO SCH (08:04)
[2017-05-25] MEDS: Potassium Chlor TAB* 20 MEQ TAB.ER PO SCH ×2 (08:04→20:39)
[2017-05-25] MEDS: Lisinopril TAB* 10 MG PO SCH (08:05)
[2017-05-25] MEDS: Hydroxychloroquine TAB* 200 MG PO SCH ×2 (08:05→20:40)
[2017-05-25] MEDS: Allopurinol TAB* 100 MG PO SCH (08:05)
[2017-05-25] MEDS: Docusate CAP* 100 MG PO SCH ×2 (08:05→20:39)
[2017-05-25] MEDS: Metoprolol Succinate XL TAB* 50 MG PO SCH ×2 (08:05→20:40)
[2017-05-25] MEDS: Diltiazem CD CAP* 120 MG PO SCH (08:06)
--- NOTE | 2017-05-25 08:35 | PN ---
Subjective Date of Service: 05/25/17 Interval History: Ms. Hi is sad this morning and worries that she is not making good progress towards going home. She reports nausea with eating. She denies abdominal pain or any further pain in her shoulder blades as she had yesterday. She denies chest pain or SOB. Family History: Unchanged from Admission Social History: Unchanged from Admission Past Medical History: Unchanged from Admission Objective Active Medications: Acetaminophen (Tylenol Tab*) 650 mg PO Q6H CHARU Allopurinol (Zyloprim Tab*) 100 mg PO DAILY CHARU Alprazolam (Xanax Tab*) 0.5 mg PO DAILY PRN Bisacodyl (Dulcolax Supp*) 10 mg [place] DAILY PRN Diltiazem HCl (Cardizem Cd Cap*) 120 mg PO DAILY CHARU Diphenhydramine HCl (Benadryl Iv*) 12.5 mg IV Q6H PRN Docusate Sodium (Colace Cap*) 100 mg PO BID CHARU Gabapentin (Neurontin Cap(*)) 300 mg PO DAILY CHARU Hydroxychloroquine Sulfate (Plaquenil Tab*) 200 mg PO BID CHARU Lactated Ringer's (Lactated Ringers 1000 Ml Bag*) 1,000 mls @ 100 mls/hr IV PER RATE CHARU Lactulose (Lactulose*) 30 ml PO Q6H PRN Lisinopril (Prinivil Tab*) 40 mg PO DAILY CHARU Magnesium Hydroxide (Milk Of Magnesia Liq*) 30 ml PO Q6H PRN Metoprolol Succinate (Toprol Xl Tab*) 50 mg PO BID CHARU Morphine Sulfate (Morphine Inj (Syringe)*) 0.5 mg IV Q2H PRN Omeprazole (Prilosec Cap*) 20 mg PO 0600 CHARU Ondansetron HCl (Zofran Inj*) 4 mg IV Q6H PRN Oxycodone/Acetaminophen (Percocet 5/325 Tab*) 1 tab PO Q3H PRNb Pharmacy Profile Note (Coumadin Daily Reminder*) 1 note FOLLOW UP 1700 CHARU Polyethylene Glycol/Electrolytes (Miralax*) 17 gm PO DAILY PRN Potassium Chloride (Klor Con Er Tab*) 20 meq PO BID CHARU Tramadol HCl (Ultram*) 50 mg PO Q6H PRN Vital Signs 05/24/17 05/24/17 05/24/17 09:32 09:33 11:19 Temperature 98.0 F Pulse Rate 65 Respiratory 16 16 16 Rate Blood Pressure 106/81 (mmHg) O2 Sat by Pulse 93 Oximetry 05/24/17 05/24/17 05/24/17 12:43 14:43 15:40 Temperature 99.3 F Pulse Rate 77 Respiratory 16 16 20 Rate Blood Pressure 140/77 (mmHg) O2 Sat by Pulse 98 Oximetry 05/24/17 05/24/17 05/24/17 15:57 16:00 17:57 Temperature Pulse Rate Respiratory 18 18 Rate Blood Pressure (mmHg) O2 Sat by Pulse 98 Oximetry 05/24/17 05/24/17 05/24/17 20:27 20:59 21:00 Temperature 98.1 F Pulse Rate 66 Respiratory 20 16 20 Rate Blood Pressure 124/80 (mmHg) O2 Sat by Pulse 95 Oximetry 05/24/17 05/24/17 05/25/17 22:27 23:25 01:55 Temperature 98.8 F Pulse Rate 66 Respiratory 16 20 20 Rate Blood Pressure 121/48 (mmHg) O2 Sat by Pulse 94 Oximetry 05/25/17 05/25/17 05/25/17 03:25 03:55 06:07 Temperature 99.2 F Pulse Rate 64 Respiratory 18 16 18 Rate Blood Pressure 127/63 (mmHg) O2 Sat by Pulse 94 Oximetry 05/25/17 05/25/17 05/25/17 07:21 07:22 07:30 Temperature 98.3 F Pulse Rate 63 Respiratory 16 16 18 Rate Blood Pressure 129/63 (mmHg) O2 Sat by Pulse 96 96 Oximetry 05/25/17 05/25/17 08:04 08:06 Temperature Pulse Rate Respiratory 16 16 Rate Blood Pressure (mmHg) O2 Sat by Pulse Oximetry Oxygen Devices in Use Now: None Appearance: Female sitting up in chair in NAD Eyes: No Scleral Icterus Ears/Nose/Mouth/Throat: Mucous Membranes Moist Neck: Trachea Midline Respiratory: Symmetrical Chest Expansion and Respiratory Effort, Clear to Auscultation Cardiovascular: NL Sounds; No Murmurs; No JVD, No Edema Abdominal: NL Sounds; No Tenderness; No Distention Lymphatic: No Cervical Adenopathy Extremities: No Edema Skin: No Rash or Ulcers Neurological: Alert and Oriented x 3, NL Muscle Strength and Tone Nutrition: Taking PO's Result Diagrams: 05/25/17 05:54 05/24/17 07:15 Microbiology and Other Data: Microbiology 05/22/17 18:45 Nasal Screen MRSA (PCR)(JOSE MANUEL) - Final Nasal Mrsa Negative Assess/Plan/Problems-Billing Assessment: Ms. Hi is a 72 yo female with a PMH significant for OA, HTN, HLD, anxiety , PMR, SLE, gout, and pelvic and duodenal ulcers who was admitted on 05/22 for an elective left total hip replacement. - Patient Problems (1) History of total left hip replacement Comment: - POD #3, management per ortho. - HH stable. - PT/OT. - Tylenol and tramadol for prn given AMS with narcotics. (2) Altered mental status Comment: - Patient intermittently mildly confused but generally oriented. - Suspect that earlier confusion was related to narcotics. - Continue acetaminophen and tramadol for pain. (3) GERD (gastroesophageal reflux disease) Comment: - Patient reports some nause with eating today. - Continue omeprazole. (4) Anxiety Comment: - Continue alprazolam prn. (5) Polymyalgia rheumatica Comment: - Hold prn prednisone. (6) HTN (hypertension) Comment: - SBP 100-140s. - Resume home metoprolol, hold lisinopril. (Patient reportedly takes lisinopril 40 mg BID, which is more than recommended dose. Will attempt to confirm with PCP on Friday). (7) Chronic pain Comment: - Continue gabapentin. (8) Hx of gout Comment: - Continue allopurinol. (9) Lupus (systemic lupus erythematosus) Comment: - Continue Plaquenil. (10) DVT prophylaxis Comment: - Warfarin and Lovenox. Status and Disposition: Inpatient admit. Dispo per ortho.
--- NOTE | 2017-05-25 10:09 | PN ---
Progress Note - Progress Note Date of Service: 05/25/17 SOAP: Subjective: Pt. is seen in chair this morning. Pt is slightly confused, and upset about weakness in LLE. She states that she is in increased pain. Pt denies any SOB, Cough or chest pain. Objective: LLE - dressing c/d/i. distally nvi. thigh soft. pt is able to df/pf. DP is 2+ Vital Signs Temp 98.3 F 05/25/17 07:21 Pulse 63 05/25/17 07:21 Resp 16 05/25/17 09:59 BP 129/63 05/25/17 07:21 Pulse Ox 96 05/25/17 07:22 Intake & Output 05/24/17 05/25/17 05/25/17 18:59 06:59 18:59 Intake Total 1145 2190 360 Output Total 260 700 200 Balance 885 1490 160 Intake: IV Fluids 990 LR 990 Oral 1145 1200 360 Output: Urine 110 700 200 Kumari 150 Other: Date of Last Bowel 05/25/17 Movement # Bowel Movements 1 Estimated Stool Amount Large # Voids 1 Assessment: 72 yo F pod 3 s/p LTHA Plan: wbat lle with post hip precautions pt/ot hold coumadin tonight Tylenol and tramadol for prn given AMS with narcotics. Begin to Look for possible rehab placement tomorrow ]
[2017-05-25] MEDS: traMADol TAB* 50 MG PO PRN ×2 (15:09→23:58)
[2017-05-25] MEDS ORDERED: Albuterol 2.5 MG/3 ML NEB.SOL* (0.083%) INH PRN (20:59)
[2017-05-25] MEDS: ALPRAZolam TAB* 0.5 MG PO PRN (21:39)
[2017-05-26] MEDS: oxyCODONE/Acetamin 5/325 MG* TAB PO PRN ×2 (02:26→08:26)
[2017-05-26] MEDS: Acetaminophen TAB* 325 MG PO SCH ×5 (03:49→19:01)
[2017-05-26 05:23] LABS: Hematocrit 25 % (35-47); Hemoglobin 8.4 g/dl (12.0-16.0)
[2017-05-26] MEDS: Omeprazole CAP* 20 MG PO SCH (05:51)
[2017-05-26] MEDS: traMADol TAB* 50 MG PO PRN ×2 (05:51→16:12)
[2017-05-26] MEDS: Hydroxychloroquine TAB* 200 MG PO SCH ×2 (08:24→19:46)
[2017-05-26] MEDS: Lisinopril TAB* 10 MG PO SCH (08:25)
[2017-05-26] MEDS: Potassium Chlor TAB* 20 MEQ TAB.ER PO SCH ×2 (08:25→19:46)
[2017-05-26] MEDS: Metoprolol Succinate XL TAB* 50 MG PO SCH ×3 (08:25→19:02)
[2017-05-26] MEDS: Gabapentin CAP(*) 300 MG PO SCH (08:26)
[2017-05-26] MEDS: Docusate CAP* 100 MG PO SCH ×2 (08:27→19:46)
[2017-05-26] MEDS: Diltiazem CD CAP* 120 MG PO SCH (08:27)
[2017-05-26] MEDS: Allopurinol TAB* 100 MG PO SCH (08:27)
--- NOTE | 2017-05-26 09:49 | PN ---
Progress Note - Progress Note Date of Service: 05/26/17 SOAP: Subjective: []Patient seen OOB in chair, just worked with PT and walked well in the hallway. Reported to have some external rotation of her foot while ambulating, but is improving. Her confusion is also improving. She is awaiting a rehab bed offer and picks [facility] as her 1 [facility] choice. Overall her pain is well managed. Objective: [] Vital Signs Temp 98.2 F 05/26/17 07:41 Pulse 59 05/26/17 07:41 Resp 18 05/26/17 08:26 BP 140/65 05/26/17 07:41 Pulse Ox 98 05/26/17 07:41 Intake & Output 05/25/17 05/26/17 05/26/17 18:59 06:59 18:59 Intake Total 1861 260 Output Total 975 1450 Balance 886 -1190 Intake: IV Fluids 841 LR 841 Oral 1020 260 Output: Urine 975 1450 Other: Estimated Void Medium # Bowel Movements 0 Laboratory Results - last 24 hr 05/26/17 05/26/17 05:14 05:14 Hgb 8.4 L Hct 25 L INR (Anticoag Therapy) 1.93 H Left hip incision is healing well, no drainage calf non tender and soft +DF/PF left ankle Assessment: []s/p Left total hip arthroplasty POD #4 Plan: []PT/OT WBAT LLE Coumadin- 2 mg today Await rehab bed offer Follow up in 10- [address] Rueda as scheduled once discharged
--- NOTE | 2017-05-26 16:26 | PN ---
Subjective Date of Service: 05/26/17 Interval History: Ms. Hi is a bit more confused today but she answers questions and engages in conversation appropriately for the most part. She denies complaint and is happy with the progress she is making today with therapy. She denies other complaint including chest pain, SOB, nausea, or abdominal pain. Family History: Unchanged from Admission Social History: Unchanged from Admission Past Medical History: Unchanged from Admission Objective Active Medications: Acetaminophen (Tylenol Tab*) 650 mg PO Q6H CHARU Albuterol (Ventolin 2.5 Mg/3 Ml Neb.Maame*) 2.5 mg INH Q2H PRN Allopurinol (Zyloprim Tab*) 100 mg PO DAILY CHARU Alprazolam (Xanax Tab*) 0.5 mg PO DAILY PRN Bisacodyl (Dulcolax Supp*) 10 mg WA DAILY PRN Diltiazem HCl (Cardizem Cd Cap*) 120 mg PO DAILY CHARU Diphenhydramine HCl (Benadryl Iv*) 12.5 mg IV Q6H PRN Docusate Sodium (Colace Cap*) 100 mg PO BID CHARU Gabapentin (Neurontin Cap(*)) 300 mg PO DAILY CHARU Hydroxychloroquine Sulfate (Plaquenil Tab*) 200 mg PO BID CHARU Lactulose (Lactulose*) 30 ml PO Q6H PRN Lisinopril (Prinivil Tab*) 40 mg PO DAILY CHARU Magnesium Hydroxide (Milk Of Magnesia Liq*) 30 ml PO Q6H PRN Metoprolol Succinate (Toprol Xl Tab*) 50 mg PO BID CHARU Morphine Sulfate (Morphine Inj (Syringe)*) 0.5 mg IV Q2H PRN Omeprazole (Prilosec Cap*) 20 mg PO 0600 CHARU Ondansetron HCl (Zofran Inj*) 4 mg IV Q6H PRN Oxycodone/Acetaminophen (Percocet 5/325 Tab*) 1 tab PO Q3H PRN Pharmacy Profile Note (Coumadin Daily Reminder*) 1 note FOLLOW UP 1700 CHARU Polyethylene Glycol/Electrolytes (Miralax*) 17 gm PO DAILY PRN Potassium Chloride (Klor Con Er Tab*) 20 meq PO BID CHARU Tramadol HCl (Ultram*) 50 mg PO Q6H PRN Warfarin Sodium (Coumadin Tab(*)) 2 mg PO ONCE@1700 ONE Vital Signs 05/25/17 05/25/17 05/25/17 17:09 19:35 19:43 Temperature 98.1 F Pulse Rate 70 Respiratory 20 20 20 Rate Blood Pressure 136/65 (mmHg) O2 Sat by Pulse 100 Oximetry 05/25/17 05/25/17 05/25/17 20:39 21:39 21:54 Temperature Pulse Rate Respiratory 16 18 Rate Blood Pressure (mmHg) O2 Sat by Pulse 99 Oximetry 05/25/17 05/25/17 05/25/17 22:39 23:35 23:39 Temperature 99.0 F Pulse Rate 62 Respiratory 20 18 18 Rate Blood Pressure 140/78 (mmHg) O2 Sat by Pulse 96 Oximetry 05/25/17 05/26/17 05/26/17 23:58 01:58 02:26 Temperature Pulse Rate Respiratory 20 16 16 Rate Blood Pressure (mmHg) O2 Sat by Pulse Oximetry 05/26/17 05/26/17 05/26/17 03:21 04:26 05:51 Temperature 98.7 F Pulse Rate 64 Respiratory 18 18 16 Rate Blood Pressure 135/59 (mmHg) O2 Sat by Pulse 96 Oximetry 05/26/17 05/26/17 05/26/17 07:41 07:51 08:00 Temperature 98.2 F Pulse Rate 59 Respiratory 16 18 18 Rate Blood Pressure 140/65 (mmHg) O2 Sat by Pulse 98 98 Oximetry 05/26/17 05/26/17 05/26/17 08:26 10:26 11:17 Temperature 98.4 F Pulse Rate 62 Respiratory 18 18 16 Rate Blood Pressure 122/60 (mmHg) O2 Sat by Pulse 98 Oximetry 05/26/17 05/26/17 05/26/17 11:26 11:27 15:58 Temperature 97.4 F Pulse Rate 62 73 Respiratory 16 20 Rate Blood Pressure 141/83 (mmHg) O2 Sat by Pulse 98 98 100 Oximetry 05/26/17 16:12 Temperature Pulse Rate Respiratory 18 Rate Blood Pressure (mmHg) O2 Sat by Pulse Oximetry Oxygen Devices in Use Now: None Appearance: Elderly female sitting up in chair in NAD Eyes: No Scleral Icterus Neck: NL Appearance and Movements; NL JVP, Trachea Midline Respiratory: Symmetrical Chest Expansion and Respiratory Effort, Clear to Auscultation Cardiovascular: NL Sounds; No Murmurs; No JVD, No Edema Abdominal: NL Sounds; No Tenderness; No Distention Lymphatic: No Cervical Adenopathy Extremities: No Edema Skin: No Rash or Ulcers Neurological: Alert and Oriented x 3, NL Muscle Strength and Tone Nutrition: Taking PO's Result Diagrams: 05/26/17 05:14 05/24/17 07:15 Microbiology and Other Data: Microbiology 05/22/17 18:45 Nasal Screen MRSA (PCR)(JOSE MANUEL) - Final Nasal Mrsa Negative Assess/Plan/Problems-Billing Assessment: Ms. Hi is a 72 yo female with a PMH significant for OA, HTN, HLD, anxiety , PMR, SLE, gout, and pelvic and duodenal ulcers who was admitted on 05/22 for an elective left total hip replacement. - Patient Problems (1) History of total left hip replacement Comment: - POD #4, management per ortho. - HH stable. - PT/OT. - Tylenol and tramadol for prn given AMS with narcotics. (2) Altered mental status Comment: - Patient intermittently mildly confused but generally oriented. - Suspect that earlier confusion was related to narcotics. - Continue acetaminophen and tramadol for pain. (3) GERD (gastroesophageal reflux disease) Comment: - Patient reports some nause with eating today. - Continue omeprazole. (4) Anxiety Comment: - Continue alprazolam prn. (5) Polymyalgia rheumatica Comment: - Hold prn prednisone. (6) HTN (hypertension) Comment: - SBP 100-140s. - Continue home metoprolol and lisinopril. Patient reportedly takes lisinopril 40 mg BID, which is more than recommended dose. Have adjusted to 40mg daily with good effect. (7) Chronic pain Comment: - Continue gabapentin. (8) Hx of gout Comment: - Continue allopurinol. (9) Lupus (systemic lupus erythematosus) Comment: - Continue Plaquenil. (10) DVT prophylaxis Comment: - Warfarin with therapeutic INR. Status and Disposition: Inpatient admit. Dispo per ortho.
[2017-05-26] MEDS ORDERED: Warfarin TAB(*) 2 MG PO ONE (17:00)
[2017-05-26] MEDS ORDERED: oxyCODONE TAB* 5 MG TAB PO PRN ×2 (18:41→18:42)
[2017-05-26] MEDS ORDERED: Acetaminophen TAB* 325 MG ONE (18:49)
[2017-05-26] MEDS: ALPRAZolam TAB* 0.5 MG PO PRN (18:53)
[2017-05-26] MEDS ORDERED: Morphine INJ* 2 MG/ML 1 ML SYRINGE IV PRN (20:02)
[2017-05-26] MEDS ORDERED: Haloperidol INJ IV/IM* 5 MG/ML AMP IM ONE (21:37)
[2017-05-26] MEDS ORDERED: Haloperidol INJ IV/IM* 5 MG/ML AMP ONE (21:39)
[2017-05-27] MEDS: traMADol TAB* 50 MG PO PRN ×3 (00:25→13:48)
[2017-05-27] MEDS: Omeprazole CAP* 20 MG PO SCH (05:28)
[2017-05-27] MEDS: Potassium Chlor TAB* 20 MEQ TAB.ER PO SCH (08:17)
[2017-05-27] MEDS: Acetaminophen TAB* 325 MG PO SCH (08:17)
[2017-05-27] MEDS: Gabapentin CAP(*) 300 MG PO SCH (08:17)
[2017-05-27] MEDS: Diltiazem CD CAP* 120 MG PO SCH (08:18)
[2017-05-27] MEDS: Metoprolol Succinate XL TAB* 50 MG PO SCH (08:18)
[2017-05-27] MEDS: Lisinopril TAB* 10 MG PO SCH (08:18)
[2017-05-27] MEDS: Allopurinol TAB* 100 MG PO SCH (08:18)
[2017-05-27] MEDS: Hydroxychloroquine TAB* 200 MG PO SCH (08:18)
[2017-05-27] MEDS: Docusate CAP* 100 MG PO SCH (08:18)
[2017-05-27 08:43] LABS: Hematocrit 28 % (35-47); Hemoglobin 9.6 g/dl (12.0-16.0)
--- NOTE | 2017-05-27 09:50 | PN ---
Progress Note - Progress Note Date of Service: 05/27/17 SOAP: Subjective: []Patient seen OOB in chair. Nursing reports that she had a "bad night", with increased confusion and was very combative witch required security to be summoned. She is alert and oriented this am. Awaiting on family to make final decision on rehab bed choice. Objective: [] Vital Signs Temp 98.3 F 05/27/17 08:28 Pulse 71 05/27/17 09:36 Resp 16 05/27/17 09:36 BP 147/76 05/27/17 08:28 Pulse Ox 97 05/27/17 09:36 Intake & Output 05/26/17 05/27/17 05/27/17 18:59 06:59 18:59 Intake Total 2280 440 Output Total 600 1650 Balance 1680 -1210 Intake: Oral 2280 440 Output: Urine 600 1650 Other: Estimated Void Medium Date of Last Bowel 05/27/17 Movement # Bowel Movements 1 Estimated Stool Amount Medium # Voids 1 Laboratory Results - last 24 hr 05/27/17 05/27/17 08:24 08:24 Hgb 9.6 L Hct 28 L INR (Anticoag Therapy) 1.86 H Left hip dressing dry, wound benign neuro intact with calf non tender and soft continued active DF/PF left ankle Assessment: []s/p left total hip arthroplasty confusion/ possible sun downing Plan: []Discharge to rehab today Follow up as scheduled 06/04/[address] Rueda Coumadin 4 mg today
[2017-05-27 12:32] VITALS: BP 124/68
--- NOTE | 2017-05-27 14:40 | DS ---
CC: [facility]* DATE OF ADMISSION: 05/22/2017. DATE OF DISCHARGE: 05/27/2017. ATTENDING PHYSICIAN: Dr. Trudy Rueda. ADMISSION DIAGNOSIS: End-stage osteoarthritis left hip joint. DISCHARGE DIAGNOSIS: End-stage osteoarthritis left hip joint. SURGERY PERFORMED: Left total hip arthroplasty. HOSPITAL COURSE: The patient is a 72-year-old female with increasing severe left hip pain. She failed conservative management with anti-inflammatories, pain medication, physical therapy, and ambulatory assistive devices. She elected to proceed with surgical intervention and was taken to the operating room under the care of Dr. Rueda on the date of 05/22/2017. She tolerated the procedure well and left the operating room in stable condition. Postoperatively, she progressed satisfactorily, albeit slowly with her PT/OT goals, which the patient found to be frustrating. It was felt that she would benefit [facility] prior to returning independently at home. She also had some difficulties during her postoperative period with confusion/altered mental status which was felt to be related to narcotic pain medications. These medications were used minimally. She had one evening of agitation and combativeness which required staff and security to be present to prevent the patient from injuring herself or others. She received one dose of Haldol and the mental status changes improved. Upon seeing her this morning, she was alert and oriented, pleasant and cooperative, pain well-managed and felt that she was ready for discharge to the nursing facility for continued rehab. CONDITION ON DISCHARGE: As above. She is pleasant, cooperative, alert and oriented times three. Her left hip incision is healing without evidence of drainage of infection. Her calf is nontender and soft. Her neurovascular status is intact. She has full dorsiflexion and plantarflexion of the left ankle. PLAN: Discharge to [facility]. She may continue to bear weight as tolerated on the left lower extremity. She will continue with Coumadin for DVT prophylaxis with INR's being drawn on Friday's and 's. She was given 4 mg of Coumadin today, 05/27/2017. She will receive 2 mg of Coumadin on 05/28/2017 with a repeat INR to be drawn on 05/29/2017 at the jail facility. There will be further Coumadin dosages to follow. We recommend Tramadol for pain and avoid Oxycodone as this appeared to make her agitated and confused. We recommend a follow-up in the office as scheduled with Dr. Rueda, 06/04/2017. If there are any changes in her condition orthopedically , the office should be contacted prior to her scheduled appointment. MENDEZ FREEMAN [id number]/[facility] #: [id number] RUSTAM
== END 2017-05-27 15:05 | DRG 470 ==
LOC: AA 05-22 09:52 → SSU 05-22 14:30
PROVIDERS: ADMIT Orthopaedic Surgery Adult Reconstructive Orthopaedic Surgery; ATTEND Orthopaedic Surgery Adult Reconstructive Orthopaedic Surgery
PROC: 0SRB04A Replacement of Left Hip Joint with Ceramic on Polyethylene Synthetic Substitute, Uncemented, Open Approach (ICD-10-PCS; principal; 2017-05-22 12:00)
DX: M16.12 Unilateral primary osteoarthritis, left hip (principal); M32.9 Systemic lupus erythematosus, unspecified; R41.0 Disorientation, unspecified; T40.605A Adverse effect of unspecified narcotics, initial encounter; R45.1 Restlessness and agitation; I10 Essential (primary) hypertension; F41.9 Anxiety disorder, unspecified; E78.00 Pure hypercholesterolemia, unspecified; M35.3 Polymyalgia rheumatica; Z98.49 Cataract extraction status, unspecified eye; Z90.710 Acquired absence of both cervix and uterus; Z88.8 Allergy status to other drugs, medicaments and biological substances; Z82.49 Family history of ischemic heart disease and other diseases of the circulatory system; Z82.61 Family history of arthritis; Z80.1 Family history of malignant neoplasm of trachea, bronchus and lung; Z80.41 Family history of malignant neoplasm of ovary; F17.210 Nicotine dependence, cigarettes, uncomplicated; Z86.14 Personal history of Methicillin resistant Staphylococcus aureus infection; M10.9 Gout, unspecified; R41.82 Altered mental status, unspecified; E78.5 Hyperlipidemia, unspecified; G89.29 Other chronic pain; K21.9 Gastro-esophageal reflux disease without esophagitis; M50.30 Other cervical disc degeneration, unspecified cervical region; M51.36 Other intervertebral disc degeneration, lumbar region; Z91.040 Latex allergy status; H40.9 Unspecified glaucoma
CPT/HCPCS: 36415; 72170; 80048; 85014; 85018; 85610; 87641; 88304; 88311; 94760; A9270-GY; C1713; C1776; J0690; J1630; J1650; J1720; J2250; J2270; J2704; J2795; J3010